=== PATIENT | male | born 1960 | race Caucasian/White ===

== ENCOUNTER 2017-12-09 08:36 | Day surgery (SDC) | payer MEDICARE, MEDICAID ==
[~2017-12-09] VITALS: Ht 170.2 cm; Wt 73.5 kg
[2017-12-09] MEDS ORDERED: IODIXANOL 320MG/ML 200ML BOTTLE ONE (11:02)
[2017-12-09] MEDS ORDERED: LIDOCAINE HCL/PF 1% 10 MG/ML 5ML VIAL ONE (11:02)
[2017-12-09] MEDS ORDERED: MIDAZOLAM HCL 2 MG/2 ML VIAL ONE (11:02)
[2017-12-09] MEDS ORDERED: FENTANYL CITRATE/PF 50MCG/ML 2ML VIAL ONE (11:02)
[2017-12-09] MEDS ORDERED: ASPI-1160 MT (11:21)
[2017-12-09] MEDS ORDERED: CLOP75TA16 MT (11:21)
[2017-12-09] MEDS ORDERED: IODIXANOL 320MG/ML 100 ML BOTTLE IV ONE (11:34)
[2017-12-09] MEDS ORDERED: PROTAMINE SULFATE 10MG/ML VIAL 5ML IV ONE (12:05)
[2017-12-09] MEDS ORDERED: HEPARIN SODIUM 1,000 UNIT/1ML VIAL IV ONE (13:57)
== END 2017-12-09 16:30 | disposition home or self-care (01) ==
LOC: CCL 08:36
PROVIDERS: ATTEND Internal Medicine Cardiovascular Disease
DX: I25.10 Atherosclerotic heart disease of native coronary artery without angina pectoris (principal); I10 Essential (primary) hypertension; E11.9 Type 2 diabetes mellitus without complications; E78.5 Hyperlipidemia, unspecified; Z79.899 Other long term (current) drug therapy; Z79.82 Long term (current) use of aspirin; Z95.1 Presence of aortocoronary bypass graft; Z87.891 Personal history of nicotine dependence
CPT/HCPCS: 82962; 93459; 93567; 99152; 99153; A4657; C1760; C1769; C1887; J1644; J2250; J2720; J3010; J3490; Q9967